=== PATIENT | female | born 2000 | race African-American/Black ===

== ENCOUNTER 2025-01-23 22:31 | Emergency (ER) | payer MEDICAID ==
[~2025-01-23] VITALS: Ht 154.9 cm; Wt 53.0 kg
[2025-01-23 23:03] VITALS: O2SAT 99
[2025-01-23 23:04] LABS: BASOPHILS % 0.7 % (0.0-2.0); EOSINOPHILS % 1.0 % (0.0-5.0); HEMATOCRIT. 39.4 % (36.0-48.0); HEMOGLOBIN. 13.4 g/dL (12.0-16.0); LYMPHOCYTES % 51.0 % (20.0-50.0); MEAN PLATELET VOLUME 8.2 fl (7.4-10.4); MONOCYTES % 12.7 % (2.0-8.0); NEUTROPHILS % 34.6 % (40.0-76.0); PLATELET 230 x1000/uL (130-400); RED BLOOD CELL COUNT 4.62 mill/uL (4.2-5.4); RED CELL DISTRIBUTION WIDTH 12.1 % (11.6-14.6)
[2025-01-23 23:19] LABS: CREATININE 0.9 mg/dL (0.6-1.0)
[2025-01-23 23:20] LABS: UREA NITROGEN BLOOD 6 mg/dL (9-23)
[2025-01-24] MEDS: ONDANSETRON 4MG ODT PO ONE (00:31)
[2025-01-24] MEDS: HYDROCODONE/ACETAMINOPHEN 5/325MG TABLET PO ONE (00:32)
[2025-01-24] MEDS: FAMOTIDINE 20MG TABLET PO SCH (00:33)
[2025-01-24 00:42] LABS: CLARITY URINE CLOUDY (CLEAR); COLOR URINE YELLOW (YELLOW); GLUCOSE URINE NEGATIVE (NEGATIVE); KETONES URINE 1+ (NEGATIVE); LEUKOCYTE ESTERASE URINE NEGATIVE (NEGATIVE); NITRITE URINE NEGATIVE (NEGATIVE); OCCULT BLOOD URINE NEGATIVE (NEGATIVE); PH URINE 6.0 (4.5-8.0); PROTEIN URINE TRACE (NEGATIVE); SPECIFIC GRAVITY URINE 1.024 (1.005-1.030); UROBILINOGEN URINE 1.0 E.U./dL (0.2-1.0)
[2025-01-24 00:46] LABS: ETHANOL BLOOD < 10 mg/dL (<10)
[2025-01-24 00:48] LABS: ASPARTATE AMINOTRANSFERASE 16 IU/L (<34); BILIRUBIN DIRECT 0.3 mg/dL (<=3.0); BILIRUBIN TOTAL 0.8 mg/dL (0.1-1.0); PROTEIN TOTAL 7.3 g/dL (6.0-8.3)
[2025-01-24 00:56] LABS: *AMPHETAMINES SCREEN URINE NEGATIVE (NEGATIVE); *BARBITURATES SCREEN URINE NEGATIVE (NEGATIVE); *BENZODIAZEPINES SCREEN URINE NEGATIVE (NEGATIVE); *COCAINE SCREEN URINE NEGATIVE (NEGATIVE); CANNABINOID URINE SCREEN PRESUMPTIVE POSITIVE (NEGATIVE); ECSTASY MDMA SCREEN URINE NEGATIVE (NEGATIVE); METHADONE URINE SCREEN NEGATIVE (NEGATIVE); OPIATES URINE SCREEN NEGATIVE (NEGATIVE); PHENCYCLIDINE URINE SCREEN NEGATIVE (NEGATIVE)
[2025-01-24 00:57] LABS: HCG SCREEN NEGATIVE
[2025-01-24 01:01] LABS: SQUAMOUS EPITHELIAL CELL URINE 2+ /lpf (RARE/1+)
[2025-01-24 01:02] LABS: RBC URINE 0-2 /hpf (0-2)
[2025-01-24 01:03] LABS: BACTERIA URINE 1+
[2025-01-24] MEDS ORDERED: MAG-55 MT (02:17)
[2025-01-24] MEDS ORDERED: LACT1CAP78 MT (02:17)
[2025-01-24] MEDS ORDERED: LOPE2CAP MT (02:17)
[2025-01-24] MEDS ORDERED: TOPUD PO (02:17)
[2025-01-24] MEDS ORDERED: FAMO-135 MT (02:17)
[2025-01-24] MEDS: KETOROLAC 30MG/ML VIAL IM ONE (02:19)
[2025-01-24] MEDS: MAGNESIUM/ALUMINUM HYDROXIDE/SIMETHICONE 30ML UDC PO ONE (02:20)
[2025-01-24 02:24] VITALS: BP 114/85; PULSE 86; RESP 16; TEMP 36.7; O2SAT 100
== END 2025-01-24 02:27 | disposition home or self-care (01) ==
LOC: ER 22:31
DX: K52.9 Noninfective gastroenteritis and colitis, unspecified (principal); J45.909 Unspecified asthma, uncomplicated; Z79.899 Other long term (current) drug therapy
CPT/HCPCS: 80048; 85025; 36415 ×2; 99285; 80076; 80305; 81003; 80320; 84703; 83690; 74176; 96372; Q0162; J1885; G0480